=== PATIENT | female | born 1985 | race African-American/Black ===

== ENCOUNTER 2017-08-12 18:33 | Emergency (ER) | payer OTHER, SELFPAY | END 2017-08-12 20:22 | disposition home or self-care (01) | LOC: ERS 18:33 | DX: J10.1 Influenza due to other identified influenza virus with other respiratory manifestations (principal); E66.9 Obesity, unspecified; F41.9 Anxiety disorder, unspecified; F32.9 Major depressive disorder, single episode, unspecified; Z87.891 Personal history of nicotine dependence | CPT/HCPCS: 87804; 99283 ==

== ENCOUNTER 2017-11-04 16:54 | Emergency (ER) | payer OTHER, SELFPAY | END 2017-11-04 17:28 | disposition home or self-care (01) | LOC: ERS 16:54 | DX: G89.18 Other acute postprocedural pain (principal); K02.9 Dental caries, unspecified; E66.9 Obesity, unspecified; F41.9 Anxiety disorder, unspecified; F32.9 Major depressive disorder, single episode, unspecified; Z87.891 Personal history of nicotine dependence | CPT/HCPCS: 99283 ==

== ENCOUNTER 2017-12-05 14:56 | Emergency (ER) | payer OTHER | END 2017-12-05 16:15 | disposition home or self-care (01) | LOC: ERS 14:56 | DX: K64.9 Unspecified hemorrhoids (principal); I10 Essential (primary) hypertension; D64.9 Anemia, unspecified; E66.9 Obesity, unspecified; F32.9 Major depressive disorder, single episode, unspecified; F41.9 Anxiety disorder, unspecified; Z87.891 Personal history of nicotine dependence | CPT/HCPCS: 99282 ==

== ENCOUNTER 2018-06-26 01:22 | Emergency (ER) | payer OTHER ==
[2018-06-26 02:17] LABS: #Basophils 0.1 thou/uL (0.0-0.2); #Eosinphils 0.1 thou/uL (0.0-0.7); #Lymphocytes 3.9 thou/uL (1.20-3.40); #Monocytes 0.7 thou/uL (0.11-0.59); #Neutrophils 4.2 thou/uL (1.40-6.50); %Basophils 1.3 % (0.0-1.0); %Eosinophils 1.1 % (0.0-10.0); %Lymphocytes 42.8 % (21.0-51.0); %Monocytes 7.9 % (0.0-10.0); %Neutrophils 46.8 % (42.0-75.0); Hemoglobin 11.3 g/dL (12.0-16.0); Mean Corpuscular HGB CONC 32.3 g/dL (32.0-36.0); Mean Corpuscular Hemoglobin 25.9 pg (27.0-31.0); Mean Corpuscular Volume 80.1 fL (78.0-98.0); Mean Platelet Volume 8.1 fL (7.4-10.4); Platelet Count 426 thou/uL (130-400); RBC Distribution Width 15.9 % (11.5-14.5); Red Blood Cell (RBC) Count 4.38 mill/uL (4.20-5.40)
[2018-06-26 02:38] LABS: ALT (SGPT) 10 U/L (8-55); AST (SGOT) 13 U/L (5-34); Albumin 3.9 g/dL (3.5-5.0); Alkaline Phosphatase 91 U/L (40-150); Anion Gap 11 mmol/L (10-20); BUN (Urea Nitrogen) 10 mg/dL (7.0-18.7); Bilirubin, Total 0.2 mg/dL (0.2-1.2); Calc. Creatinine Clearance 0 mL/min (70-130); Calcium 9.2 mg/dL (7.8-10.44); Carbon Dioxide 25 mmol/L (22-29); Chloride 105 mmol/L (98-107); Estimated GFR-MDRD Greater than 90; Globulin 3.4 g/dL (2.4-3.5); Glucose 91 mg/dL (70-105); Lipase 33 U/L (8-78); Potassium 3.9 mmol/L (3.5-5.1); Protein, Total 7.3 g/dL (6.0-8.3); Sodium 137 mmol/L (136-145)
--- NOTE | 2018-06-26 10:33 | ULT ---
PRELIMINARY REPORT/[facility]/EMERGENTY AFTER-HOURS PROCEDURE US Abdomen Limited, Right Upper Quadrant EXAM DATE/TIME: 06/26/2018 2:39 AM CLINICAL HISTORY: 33 years old, female; Pain; Other: Abd/back pain TECHNIQUE: Real-time ultrasound of the abdomen with image documentation. Examination was focused on the right up per quadrant. COMPARISON: No relevant prior studies available. FINDINGS: Liver: No acute findings. No mass. Gallbladder: No acute findings. No gallstones. Common bile duct: Unremarkable. Measures 4 mm in diameter. Pancreas: Limited visualization due to bowel gas. Visualized pancreas is unremarkable. Right kidney: No acute findings. No mass. No hydronephrosis. IMPRESSION: No acute findings. Thank you for allowing us to participate in the care of your patient. Dictated and Authenticated by: Kali Bragg MD 06/26/2018 3:33 AM Central Time ([place] & [place]) FINAL REPORT RIGHT UPPER QUADRANT ULTRASOUND: Date: 06/26/18 FINDINGS/IMPRESSION: I agree with the preliminary report given by [facility]. POS: [facility]
== END 2018-06-26 03:35 | disposition home or self-care (01) ==
LOC: ERS 01:22
DX: M62.830 Muscle spasm of back (principal); Z87.891 Personal history of nicotine dependence
CPT/HCPCS: 36415; 76705; 80053; 83690; 85025

== ENCOUNTER 2018-09-20 01:08 | Emergency (ER) | payer BC, OTHER, SELFPAY ==
[2018-09-20] MEDS ORDERED: Lidocaine 1% PF 5 ML VIAL ONE (01:59)
[2018-09-20] MEDS ORDERED: Bacitracin Zinc 1 Packet ONE (02:27)
== END 2018-09-20 02:34 | disposition home or self-care (01) ==
LOC: ERS 01:08
DX: S61.012A Laceration without foreign body of left thumb without damage to nail, initial encounter (principal); Z71.6 Tobacco abuse counseling; E66.9 Obesity, unspecified; D64.9 Anemia, unspecified; F17.210 Nicotine dependence, cigarettes, uncomplicated; Z79.899 Other long term (current) drug therapy; W26.0XXA Contact with knife, initial encounter
CPT/HCPCS: 12001; 99406; J2001

== ENCOUNTER 2018-09-29 05:08 | Emergency (ER) | payer BC ==
[2018-09-29] MEDS ORDERED: Acetaminophen 500 MG TAB ONE (05:18)
== END 2018-09-29 05:23 | disposition home or self-care (01) ==
LOC: ERS 05:08
DX: H60.92 Unspecified otitis externa, left ear (principal); D64.9 Anemia, unspecified; F17.210 Nicotine dependence, cigarettes, uncomplicated
CPT/HCPCS: 99282

== ENCOUNTER 2019-01-22 09:58 | Emergency (ER) | payer BC ==
[2019-01-22 11:17] LABS: BHCG - Serum Negative (NEGATIVE); Pregs Control Background? CLEAR/WHITE (CLR/WHITE); Pregs Control Bar Appear? YES (CONTROL BAR)
[2019-01-22 11:25] LABS: #Basophils 0.1 thou/uL (0.0-0.2); #Eosinphils 0.3 thou/uL (0.0-0.7); #Lymphocytes 2.3 thou/uL (1.20-3.40); #Neutrophils 6.3 thou/uL (1.40-6.50); %Basophils 0.5 % (0.0-1.0); %Lymphocytes 23.4 % (21.0-51.0); %Monocytes 9.7 % (0.0-10.0); %Neutrophils 63.5 % (42.0-75.0); Hemoglobin 11.8 g/dL (12.0-16.0); Mean Corpuscular Volume 81.1 fL (78.0-98.0); Mean Platelet Volume 9.1 fL (7.4-10.4); Platelet Count 446 thou/uL (130-400); RBC Distribution Width 16.9 % (11.5-14.5); Red Blood Cell (RBC) Count 4.54 mill/uL (4.20-5.40)
[2019-01-22 11:34] LABS: ALT (SGPT) 12 U/L (8-55); AST (SGOT) 20 U/L (5-34); Albumin 3.8 g/dL (3.5-5.0); Alkaline Phosphatase 74 U/L (40-150); Anion Gap 17 mmol/L (10-20); BUN (Urea Nitrogen) 6 mg/dL (7.0-18.7); Bilirubin, Total 0.5 mg/dL (0.2-1.2); Calc. Creatinine Clearance 0 mL/min (70-130); Calcium 9.6 mg/dL (7.8-10.44); Carbon Dioxide 23 mmol/L (22-29); Chloride 102 mmol/L (98-107); Estimated GFR-MDRD Greater than 90; Globulin 4.6 g/dL (2.4-3.5); Glucose 79 mg/dL (70-105); Lipase 32 U/L (8-78); Potassium 5.1 mmol/L (3.5-5.1); Protein, Total 8.4 g/dL (6.0-8.3); Sodium 137 mmol/L (136-145)
[2019-01-22 12:14] LABS: Bilirubin Moderate (Negative); Blood, Urine Small (Negative); Clarity CLOUDY (Clear); Glucose, Urine (Dipstick) Negative (Negative); Leukocyte Negative (Negative); Nitrite Negative (Negative); Protein, Urine (Dipstick) 30 mg/dL (Neg-Trace); Specific Gravity, Urine 1.022 (1.002-1.036)
[2019-01-22 12:19] LABS: Bacteria/HPF Rare-Few HPF (None Seen)
[2019-01-22 12:25] LABS: Pathc Cast-AUWi Flag 2.72 (0-2.49)
[2019-01-22 12:42] LABS: Hyaline Casts/LPF 0-3 HYALINE CAST LPF (0-3 Hyaline); Other Casts/LPF None Seen LPF (0-3 Hyaline)
--- NOTE | 2019-01-22 13:12 | CT ---
CT OF THE ABDOMEN AND PELVIS WITH CONTRAST: HISTORY: Abdominal pain. The patient had a recent gastric sleeve procedure on January 09, 2019. TECHNIQUE: Multiple contiguous axial images were obtained in a CT of the abdomen and pelvis with contrast. Chetna nal reformats were performed. FINDINGS: Postsurgical changes from gastric sleeve procedure and cholecystectomy are seen. There is a surgical drain in the left upper quadrant of the abdomen. No free air or focal fluid collection is seen in t he abdomen or pelvis. High-density contrast in the rectum likely represents contrast from previous examination. The liver, kidneys, adrenal glands, spleen, and pancreas are unremarkable. The large and small bowel are unremarkable. The reproductive organs are unremarkable. The appendix is normal. No abdominal or pelvic lymphadenopathy are seen. Mild degenerative changes are seen in the spine. The visualized inferior thorax is unremarkable. IMPRESSION: Expected postsurgical changes from cholecystectomy and gastric sleeve procedure without evidence of c omplication. POS: [facility]
== END 2019-01-22 13:43 | disposition home or self-care (01) ==
LOC: ERS 09:58
DX: R10.12 Left upper quadrant pain (principal); D64.9 Anemia, unspecified; F17.210 Nicotine dependence, cigarettes, uncomplicated; Z79.899 Other long term (current) drug therapy
CPT/HCPCS: 36415; 74177; 80053; 81003; 81015; 82150; 83605; 83690; 84703; 85025; 96361; 96365; J3411; J3490

== ENCOUNTER 2020-08-21 17:30 | Emergency (ER) | payer BC | END 2020-08-21 21:20 | disposition left against medical advice (07) | LOC: ERS 17:30 | DX: Z53.21 Procedure and treatment not carried out due to patient leaving prior to being seen by health care provider (principal) ==

== ENCOUNTER 2022-10-10 02:51 | Emergency (ER) | payer BC, SELFPAY | END 2022-10-10 04:37 | LOC: ERS 02:51 | DX: Z53.21 Procedure and treatment not carried out due to patient leaving prior to being seen by health care provider (principal) ==